=== PATIENT | female | born 1980 | race Caucasian/White ===

== ENCOUNTER 2017-09-22 08:59 | Emergency (ER) | payer SELFPAY ==
[2017-09-22 10:09] LABS: Bilirubin,Urine NEG (Negative); Blood,Urine SM (Negative); Ketones,Urine NEG (Negative); Leukocyte Esterase,Urine NEG (Negative); Nitrite,Urine NEG (Negative); Protein,Urine <15 mg/dL mg/dL (Negative); Urobilinogen,Urine < 2.0 mg/dL (<2.0)
--- NOTE | 2017-09-22 10:59 | Emergency Department Report ---
HPI - General Chief Complaint: Abdominal Pain Time Seen by Provider: 09/22/17 10:46 - HPI HPI: Is a 37-year-old female presents to the emergency department, driving himself in to be seen, with a complaint of a four-day history of right lower quadrant abdominal and flank pain. She denies any nausea, vomiting, dysuria, vaginal bleeding or discharge. She denies any past medical history although she briefly says some previous history with her right kidney. She is not taking anything for her symptoms. Presentation. She does not have a primary care physician. No recent travel or sick contacts at home. ED Past Medical Hx - Past Medical History Previous Medical History?: No Hx Hypertension: No Hx Congestive Heart Failure: No Hx Diabetes: No Hx Deep Vein Thrombosis: No Hx Renal Disease: No Hx Sickle Cell Disease: No Hx Seizures: No Hx Asthma: No Hx COPD: No Hx HIV: No - Surgical History Past Surgical History?: No - Social History Smoking Status: Never Smoker - Medications Home Medications: Home Medications Medication Instructions Recorded Confirmed Last Taken Type HYDROcodone/APAP 5-325 [[place] 1 each PO Q6HR PRN #10 tablet 09/22/17 Unknown Rx 5/325] ED Review of Systems ROS: Stated complaint: RIGHT FLANK PAIN Other details as noted in HPI Comment: All other systems reviewed and negative Constitutional: denies: chills, fever Eyes: denies: eye pain, eye discharge, vision change ENT: denies: ear pain, throat pain Respiratory: denies: cough, shortness of breath, wheezing Cardiovascular: denies: chest pain, palpitations Gastrointestinal: abdominal pain. denies: nausea, vomiting Genitourinary: denies: urgency, dysuria, discharge Musculoskeletal: denies: back pain, joint swelling, arthralgia Skin: denies: rash, lesions Neurological: denies: headache, weakness, paresthesias Physical Exam - Physical Exam Vital Signs: Vital Signs 09/22/17 09:10 Temperature 98.2 F Pulse Rate 98 H Respiratory 16 Rate Blood Pressure 113/61 O2 Sat by Pulse 100 Oximetry Physical Exam: GENERAL: The patient is well-developed well-nourished. HENT: Normocephalic. Atraumatic. Patient has moist mucous membranes. EYES: Extraocular motions are intact. Pupils equal reactive to light bilaterally. NECK: Supple. Trachea is midline. CHEST/LUNGS: Clear to auscultation. There is no respiratory distress noted. HEART/CARDIOVASCULAR: Regular. There is no tachycardia. There is no murmur. ABDOMEN: Abdomen is soft, nontender. Patient has normal bowel sounds. There is no abdominal distention. SKIN: Skin is warm and dry. NEURO: The patient is awake, alert, and oriented. The patient is cooperative. The patient has no focal neurologic deficits. The patient has normal speech and gait. MUSCULOSKELETAL: There is no tenderness or deformity. There is no limitation range of motion. There is no evidence of acute injury. ED Course Vital Signs 09/22/17 09:10 Temperature 98.2 F Pulse Rate 98 H Respiratory 16 Rate Blood Pressure 113/61 O2 Sat by Pulse 100 Oximetry ED Medical Decision Making - Lab Data Result diagrams: 09/22/17 10:56 09/22/17 10:56 - Radiology Data Radiology results: report reviewed CT ABDOMEN PELVIS WITH CONTRAST: HISTORY: Right lower quadrant abdominal pain, flank pain. COMPARISON: none. TECHNIQUE: Helical CT in 1.25mm intervals following IV contrast. Sagittal and coronal reconstructions. FINDINGS: Lung bases: Normal. Liver: Normal. Biliary system: Normal. Pancreas: Normal. Spleen: Normal. Kidneys/ureters/bladder: Normal. Adrenal glands: Normal. Aorta: Normal. Intestines: Normal. Appendix: Normal. Pelvic viscera: The uterus is unremarkable. A 1.5 cm cyst is identified in the left ovary. The right ovary is unremarkable however there is trace fluid in the right adnexal region which may represent a recently ruptured cyst. Adenopathy: None. Musculoskeletal: Normal. IMPRESSION: No acute inflammatory process. Ovarian cystic disease is suspected as described above. Please correlate with the patient's clinical presentation. Transcribed By: TTR Dictated By: NGA SEGURA JR, MD Electronically Authenticated By: NGA SEGURA JR, MD Signed Date/Time: 09/22/17 6560 - Medical Decision Making 37-year-old female with 4 day history of right-sided flank pain. Labs are unremarkable. No UTI and patient is not . CT shows left ovarian cyst and suspicion for a recently ruptured right ovarian cyst. 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 She was sent home with referrals for primary care, [facility] in its pain medication. She will return to the ER with any worsening of her symptoms or any acute distress. - Differential Diagnosis appendicitis, ovarian cyst, diverticulitis, colitis Critical Care Time: No Critical care attestation.: If time is entered above; I have spent that time in minutes in the direct care of this critically ill patient, excluding procedure time. ED Disposition Clinical Impression: Right flank pain Ovarian cyst Qualifiers: Laterality: unspecified laterality Qualified Code(s): N83.209 - Unspecified ovarian cyst, unspecified side Disposition: TO HOME OR SELFCARE Is pt being admited?: No Condition: Stable Instructions: Ovarian Cyst (ED), Flank Pain (ED) Additional Instructions: Please follow up with a primary care physician and [facility]. Return to the emergency department with any worsening of her symptoms or any acute distress. You have been prescribed a medication that is sedating and therefore should not be taken prior to driving, working, and responsible for children and in no way should be mixed with alcohol of any quantity. Prescriptions: HYDROcodone/APAP 5-325 [[place] 5/325] 1 each PO Q6HR PRN #10 tablet PRN Reason: Pain Referrals: [facility] [Outside] - 3-5 Days [facility] [Provider Group] - 3-5 Days [facility] [Provider Group] - 3-5 Days Time of Disposition: 14:07 Print Language: [place] CITIZEN
[2017-09-22 11:12] LABS: Hematocrit 39.1 % (30.3-42.9); Hemoglobin 13.5 gm/dl (10.1-14.3); Mean Corpuscular HGB Conc 35 % (30-34); Mean Corpuscular Hemoglobin 32 pg (28-32); Mean Corpuscular Volume 93 fl (79-97); Platelet Count 262 K/mm3 (140-440); Red Blood Count 4.19 M/mm3 (3.65-5.03); Red Cell Distribution Width 12.5 % (13.2-15.2); White Blood Count 7.9 K/mm3 (4.5-11.0)
[2017-09-22 11:13] LABS: Basophils % (Auto) 0.5 % (0.0-1.8); Eosinophils % (Auto) 1.3 % (0.0-4.3)
[2017-09-22 11:32] LABS: Alanine Aminotransferase 14 units/L (7-56); Albumin 4.1 g/dL (3.9-5); Albumin/Globulin Ratio 1.2 %; Alkaline Phosphatase 76 units/L (35-129); Anion Gap 16 mmol/L; BUN/Creatinine Ratio 20; Blood Urea Nitrogen 8 mg/dL (7-17); Calcium 8.7 mg/dL (8.4-10.2); Carbon Dioxide 26 mmol/L (22-30); Chloride 100.9 mmol/L (98-107); Glucose 86 mg/dL (65-100); Potassium 4.2 mmol/L (3.6-5.0); Sodium 139 mmol/L (137-145); Total Protein 7.4 g/dL (6.3-8.2)
[2017-09-22 11:40] VITALS: BP 122/57
--- NOTE | 2017-09-22 13:57 | Cat Scan Report ---
CT ABDOMEN PELVIS WITH CONTRAST: HISTORY: Right lower quadrant abdominal pain, flank pain. COMPARISON: none. TECHNIQUE: Helical CT in 1.25mm intervals following IV contrast. Sagittal and coronal reconstructions. FINDINGS: Lung bases: Normal. Liver: Normal. Biliary system: Normal. Pancreas: Normal. Spleen: Normal. Kidneys/ureters/bladder: Normal. Adrenal glands: Normal. Aorta: Normal. Intestines: Normal. Appendix: Normal. Pelvic viscera: The uterus is unremarkable. A 1.5 cm cyst is identified in the left ovary. The right ovary is unremarkable however there is trace fluid in the right adnexal region which may represent a recently ruptured cyst. Adenopathy: None. Musculoskeletal: Normal. IMPRESSION: No acute inflammatory process. Ovarian cystic disease is suspected as described above. Please correlate with the patient's clinical presentation.
== END 2017-09-22 14:38 | disposition home or self-care (01) ==
LOC: ED 08:59
DX: N83.209 Unspecified ovarian cyst, unspecified side (principal)
CPT/HCPCS: 36415; 74177; 80053; 81001; 81025; 85025; 99284; Q9966